=== PATIENT | female | born 1945 | race Caucasian/White ===

== ENCOUNTER 2018-04-27 06:48 | Observation (INO) ==
[~2018-04-27 06:48] MED LIST: DEXAMETHASONE 4 MG/1 ML VIAL IV ONE
[2018-04-27] MEDS ORDERED: LACTATED RINGERS 1,000 ML IV SCH ×2 (10:00→23:45)
[2018-04-27] MEDS ORDERED: MUPIROCIN 2% OINT 22 GM TUBE TOP ONE (13:05)
[2018-04-27] MEDS ORDERED: LIDOCAINE 1%/EPI INJ 20 ML VIAL ONE (13:05)
[2018-04-27] MEDS ORDERED: BACITRACIN 50,000 UNIT VIAL ONE (13:05)
[2018-04-27] MEDS ORDERED: DIAZEPAM 2 MG TABLET PO STA (13:18)
[2018-04-27] MEDS ORDERED: LIDOCAINE 2% TOP JELLY 5 ML TUBE TOP ONE (20:04)
[2018-04-27] MEDS ORDERED: ACETAMINOPHEN 500 MG TABLET PO PRN (23:45)
[2018-04-27] MEDS ORDERED: diphenhydrAMINE 50 MG/1 ML VIAL IV PRN (23:45)
[2018-04-27] MEDS ORDERED: KETOROLAC 30 MG/1 ML VIAL IV PRN (23:45)
[2018-04-27] MEDS ORDERED: MORPHINE 4 MG/1 ML VIAL IV PRN (23:49)
[2018-04-28 00:29] LABS: Apearance,Urine Slightly Hazy (Clear); Bacteria,Urine Occasional /HPF (Few); Bilirubin,Urine Negative (Negative); Blood, Urine Negative (Negative); Glucose,Urine (UA) Negative (Negative); Ketones,Urine Negative (Negative); Nitrite,Urine Positive (Negative); Protein,Urine Negative; RBC,Urine 3 /HPF (0-4); Urine Color Yellow (Yellow); Urine Specific Gravity 1.012 (1.001-1.035); Urine Urobilinogen < 2.0 EU/DL (0.2-1.0); WBC,Urine 81 /HPF (0-6)
[2018-04-28] MEDS ORDERED: LIDOCAINE 1% 5 ML VIAL ONE (00:30)
[2018-04-28] MEDS ORDERED: fentaNYL 100 MCG/2 ML VIAL ONE (00:31)
[2018-04-28] MEDS ORDERED: DEXAMETHASONE 10 MG/1 ML VIAL ONE (00:31)
[2018-04-28] MEDS ORDERED: MIDAZOLAM 2 MG/2 ML VIAL ONE (00:31)
[2018-04-28] MEDS ORDERED: PHENYLEPHRINE 10 MG/1 ML VIAL IV ONE (00:32)
[2018-04-28] MEDS ORDERED: ACETAMINOPHEN 1,000 MG/100 ML VIAL IV ONE (00:32)
[2018-04-28] MEDS ORDERED: SODIUM CHLORIDE 0.9% 250 ML IV ONE (00:32)
[2018-04-28] MEDS ORDERED: PROPOFOL 200 MG/20 ML VIAL IV ONE (00:33)
[2018-04-28] MEDS ORDERED: SEVOFLURANE 1 UNIT/15 MINUTE INH ONE (00:33)
[2018-04-28] MEDS ORDERED: SUCCINYLCHOLINE 200 MG/10 ML VIAL ONE (00:40)
[2018-04-28] MEDS ORDERED: ROCURONIUM 100 MG/10 ML VIAL IV ONE (00:41)
[2018-04-28] MEDS ORDERED: ePHEDrine 50 MG/ML AMP ONE (01:05)
[2018-04-28] MEDS: DEXAMETHASONE 4 MG/1 ML VIAL IV SCH ×2 (04:34→13:14)
[2018-04-28] MEDS ORDERED: ONDANSETRON 4 MG/2 ML VIAL IV SCH (06:00)
[2018-04-28] MEDS ORDERED: LEVOTHYROXINE 25 MCG TABLET PO SCH (06:00)
[2018-04-28] MEDS ORDERED: hydroCHLOROthiazide 25 MG TABLET PO SCH (09:00)
[2018-04-28] MEDS ORDERED: FOLIC ACID 1 MG TABLET PO SCH (09:00)
[2018-04-28] MEDS ORDERED: amLODIPine 5 MG TABLET PO SCH (09:00)
[2018-04-28] MEDS ORDERED: FLUoxetine 20 MG CAPSULE PO SCH (09:00)
[2018-04-28] MEDS ORDERED: PANTOPRAZOLE 40 MG TABLET PO SCH (09:00)
[2018-04-28] MEDS ORDERED: NEBIVOLOL 5 MG TABLET PO SCH (09:00)
[2018-04-28 14:03] VITALS: BP 158/74
[2018-04-28] MEDS ORDERED: tiZANidine 4 MG TABLET PO SCH (21:00)
[2018-04-28] MEDS ORDERED: OXYBUTYNIN XL 10 MG TABLET PO SCH (21:00)
[2018-04-28] MEDS ORDERED: CARBIDOPA/LEVODOPA 25-100 MG TABLET PO SCH (21:00)
[2018-04-28] MEDS ORDERED: ATORVASTATIN 10 MG TABLET PO SCH (21:00)
[2018-05-04] MEDS ORDERED: NON-FORMULARY MEDICATION (Etanercept [Enbrel] 50 MG) SUBCUT SCH (09:00)
[2018-05-04] MEDS ORDERED: METHOTREXATE 2.5 MG TABLET PO SCH (09:00)
== END 2018-04-28 14:35 | disposition home or self-care (01) ==
LOC: N.OR 06:48 → N.SDSINP 06:50 → N.ICU 23:45 → INTOOBSV 23:45 → N.ICU 04-28 00:19
PROVIDERS: ADMIT Otolaryngology; ATTEND Otolaryngology
PROC: [UNRECOGNIZED PROCEDURE] (2018-04-27 20:15)

== ENCOUNTER 2021-09-03 09:34 | Inpatient (IN) ==
[2021-09-03 10:14] LABS: Basophils # 0.1 10*3/uL (0.0-0.2); Basophils % 0.3 % (0.0-0.8); Eosinophils # 0.1 10*3/uL (0.0-0.87); Eosinophils % 0.4 % (0.00-10.9); Hematocrit 34.5 VOL% (35.7-47.0); Hemoglobin 11.3 GM/DL (12.0-16.0); Immature Granulocytes % 0.5 %; Immature Granulocytes Absolute 0.09 #; Lymphocytes # 0.7 10*3/uL (1.4-4.0); Lymphocytes % 3.9 % (21.3-54.2); Mean Corpuscular HGB Conc 32.8 GM/DL (32-36); Mean Corpuscular Volume 91.5 FL (87-102); Mean Platelet Volume 9.1 FL (9.6-12.0); Monocytes % 3.8 % (1.7-12.7); Neutrophils % 91.1 % (38.7-73.9); Platelet Count 297 T/CUMM (130-400); Red Blood Count 3.77 MC/CUMM (3.8-5.5); Red Cell Distribution Width 13.9 % (9.3-17.3); White Blood Count 17.1 T/CUMM (4-12)
[2021-09-03] MEDS ORDERED: LORazepam 2 MG/1 ML VIAL ONE (10:31)
[2021-09-03 10:38] LABS: Band Neutrophils 1 % (0-10); Eosinophils 1 % (0-10); Hypochromasia Slight; Lymphocytes 4 % (20-55); Microcytosis Slight; Platelet Estimate Adequate; Segmented Neutrophils 90 % (50-85); Total Cells Counted 100
[2021-09-03] MEDS ORDERED: SODIUM CHLORIDE 0.9% 2,150 ML IV ONE (10:40)
[2021-09-03 10:43] LABS: Alanine Aminotransferase 33 U/L (13-56); Albumin 3.2 G/DL (3.4-5.0); Alkaline Phosphatase 119 U/L (45-117); Aspartate Amino Transferase 19 U/L (0-37); Blood Urea Nitrogen 14 MG/DL (7-18); Calcium 8.9 MG/DL (8.5-10.1); Carbon Dioxide 25 MMOL/L (21-32); Estimated Glom Filtration Rate 49 ML/MIN; Glucose 133 MG/DL (74-106); Sodium 136 MMOL/L (136-145); Total Protein 7.4 G/DL (6.4-8.2)
[2021-09-03 10:46] LABS: Bilirubin,Urine Negative (Negative); Blood, Urine Negative (Negative); Glucose,Urine (UA) Negative (Negative); Hyaline Casts,Urine 4 /LPF (0-3); Ketones,Urine Negative (Negative); Mucus,Urine Occasional /LPF (Occasional); Nitrite,Urine Negative (Negative); Protein,Urine Negative; RBC,Urine <1 /HPF (0-4); Squamous Epithelial Cell,Urine Occasional /HPF (0-10); Urine Appearance CLEAR (Clear); Urine Color Yellow (Yellow); Urine Specific Gravity 1.015 (1.001-1.035); Urine Urobilinogen < 2.0 EU/DL (0.2-1.0)
[2021-09-03] MEDS ORDERED: LORazepam 2 MG/1 ML VIAL IV STA (10:48)
[2021-09-03] MEDS ORDERED: PIPERACILLIN/TAZOBACTAM 3,375 MG VIAL IV ONE (10:55)
[2021-09-03] MEDS ORDERED: POTASSIUM CHLORIDE RIDER 10 MEQ/100 ML PREMIX IV ONE (10:57)
[2021-09-03] MEDS ORDERED: MAGNESIUM SULF RIDER 1 GM/100 ML PREMIX IV STA ×3 (10:57→13:15)
[2021-09-03] MEDS ORDERED: PIPERACILLIN/TAZOBACTAM 3,375 MG in SODIUM CHLORIDE 0.9% 100 ML IV SCH ×2 (11:00→12:00)
[2021-09-03] MEDS ORDERED: VANCOMYCIN 1,000 MG VIAL ONE (11:38)
[2021-09-03] MEDS ORDERED: SIMETHICONE CHEW 125 MG TABLET PO PRN (11:41)
[2021-09-03] MEDS ORDERED: ONDANSETRON 4 MG/2 ML VIAL IV PRN (11:41)
[2021-09-03] MEDS ORDERED: DOCUSATE SODIUM 100 MG CAPSULE PO PRN (11:41)
[2021-09-03] MEDS ORDERED: hydrALAZINE 20 MG/1 ML VIAL IV PRN (11:41)
[2021-09-03] MEDS ORDERED: GLUCAGON 1 MG VIAL IM PRN (11:41)
[2021-09-03] MEDS ORDERED: DEXTROSE 50% 25 GM/50 ML VIAL IV PRN (11:41)
[2021-09-03] MEDS ORDERED: CALCIUM CARBONATE CHEW 500 MG TABLET PO PRN (11:41)
[2021-09-03] MEDS ORDERED: LORazepam 2 MG/1 ML VIAL IV PRN (11:46)
[2021-09-03] MEDS ORDERED: MAGNESIUM SULF RIDER 2 GM/50 ML PREMIX IV PRN (11:49)
[2021-09-03] MEDS ORDERED: MAGNESIUM SULF RIDER 4 GM/100 ML PREMIX IV PRN (11:49)
[2021-09-03] MEDS: VANCOMYCIN INJ 1,000 MG in SODIUM CHLORIDE 0.9% 250 ML IV SCH (11:50)
[2021-09-03] MEDS: ALBUTEROL/IPRATROPIUM 3 ML NEB RESP TX SCH ×2 (13:00→19:01)
[2021-09-03 13:04] LABS: Calcium 8.1 MG/DL (8.5-10.1); Osmolality,Calculated 275.7 MOS/KG (273-304); Potassium 3.4 MMOL/L (3.5-5.1)
[2021-09-03] MEDS ORDERED: INFLUENZA VIRUS VACCINE 0.5 ML SYRINGE IM ONE (15:32)
[2021-09-03] MEDS: SODIUM CHLORIDE 0.9% 1,000 ML IV SCH (16:51)
[2021-09-03] MEDS: PIPERACILLIN/TAZOBACTAM 3,375 MG in SODIUM CHLORIDE 0.9% 100 ML IV SCH (22:10)
[2021-09-03] MEDS: tiZANidine 4 MG TABLET PO SCH (22:13)
[2021-09-03] MEDS: OXYBUTYNIN XL 10 MG TABLET PO SCH (22:13)
[2021-09-03] MEDS: lamoTRIgine 100 MG TABLET PO SCH (22:14)
[2021-09-03] MEDS: ATORVASTATIN 10 MG TABLET PO SCH (22:16)
[2021-09-04] MEDS: ALBUTEROL/IPRATROPIUM 3 ML NEB RESP TX SCH ×4 (00:38→20:00)
[2021-09-04] MEDS: VANCOMYCIN INJ 1,000 MG in SODIUM CHLORIDE 0.9% 250 ML IV SCH ×2 (04:52→15:10)
[2021-09-04 05:16] LABS: Basophils % 0.3 % (0.0-0.8); Eosinophils # 0.1 10*3/uL (0.0-0.87); Eosinophils % 0.8 % (0.00-10.9); Hematocrit 30.2 VOL% (35.7-47.0); Immature Granulocytes % 0.4 %; Immature Granulocytes Absolute 0.04 #; Lymphocytes # 1.2 10*3/uL (1.4-4.0); Lymphocytes % 12.3 % (21.3-54.2); Mean Corpuscular HGB Conc 33.1 GM/DL (32-36); Mean Corpuscular Volume 91.8 FL (87-102); Mean Platelet Volume 9.4 FL (9.6-12.0); Monocytes % 6.7 % (1.7-12.7); Neutrophils % 79.5 % (38.7-73.9); Platelet Count 266 T/CUMM (130-400); Red Blood Count 3.29 MC/CUMM (3.8-5.5); Red Cell Distribution Width 14.2 % (9.3-17.3)
[2021-09-04 05:46] LABS: Albumin 2.8 G/DL (3.4-5.0); Bilirubin,Total 1.6 MG/DL (0.20-1.00); Calcium 8.5 MG/DL (8.5-10.1); Osmolality,Calculated 278.3 MOS/KG (273-304); Risk Ratio 2.75; Thyroid Stimulating Hormone 0.827 uIU/ml (0.358-3.74); Total Protein 6.2 G/DL (6.4-8.2); VLDL Cholesterol 13.4 MG/DL
[2021-09-04] MEDS: ACETAMINOPHEN 325 MG TABLET PO PRN (05:47)
[2021-09-04] MEDS: LEVOTHYROXINE 75 MCG TABLET PO SCH (05:47)
[2021-09-04 05:57] LABS: Potassium 2.5 MMOL/L (3.5-5.1)
[2021-09-04] MEDS: POTASSIUM CHLORIDE 20 MEQ TABLET PO PRN ×3 (06:08→11:28)
[2021-09-04] MEDS ORDERED: POTASSIUM CHLORIDE INJ 40 MEQ in SODIUM CHLORIDE 0.9% 1,000 ML IV SCH (07:35)
[2021-09-04] MEDS: GABAPENTIN 300 MG CAPSULE PO SCH (08:32)
[2021-09-04] MEDS: lamoTRIgine 100 MG TABLET PO SCH ×2 (08:33→20:31)
[2021-09-04] MEDS: PANTOPRAZOLE 40 MG TABLET PO SCH (08:33)
[2021-09-04] MEDS: ASPIRIN EC 81 MG TABLET PO SCH (08:33)
[2021-09-04] MEDS: amLODIPine 2.5 MG TABLET PO SCH (08:33)
[2021-09-04] MEDS: FLUoxetine 20 MG CAPSULE PO SCH (08:33)
[2021-09-04] MEDS ORDERED: lamoTRIgine 100 MG TABLET PO SCH (09:00)
[2021-09-04] MEDS: SODIUM CHLORIDE 0.9% 1,000 ML IV SCH (10:36)
[2021-09-04] MEDS: PIPERACILLIN/TAZOBACTAM 3,375 MG in SODIUM CHLORIDE 0.9% 100 ML IV SCH ×2 (11:29→15:09)
[2021-09-04] MEDS ORDERED: BENZOCAINE/MENTHOL LOZENGE 18/BOX PO PRN (15:57)
[2021-09-04] MEDS: cefTRIAXone 1,000 MG in SODIUM CHLORIDE 0.9% 100 ML IV SCH (16:37)
[2021-09-04] MEDS: ATORVASTATIN 10 MG TABLET PO SCH (20:31)
[2021-09-04] MEDS: tiZANidine 4 MG TABLET PO SCH (20:31)
[2021-09-04] MEDS: OXYBUTYNIN XL 10 MG TABLET PO SCH (20:31)
[2021-09-05] MEDS: ALBUTEROL/IPRATROPIUM 3 ML NEB RESP TX SCH ×2 (01:10→06:53)
[2021-09-05] MEDS: LEVOTHYROXINE 75 MCG TABLET PO SCH (05:36)
[2021-09-05 07:57] LABS: Basophils % 0.7 % (0.0-0.8); Eosinophils # 0.2 10*3/uL (0.0-0.87); Eosinophils % 3.8 % (0.00-10.9); Immature Granulocytes % 0.7 %; Immature Granulocytes Absolute 0.04 #; Lymphocytes # 1.5 10*3/uL (1.4-4.0); Lymphocytes % 24.8 % (21.3-54.2); Mean Corpuscular HGB Conc 32.3 GM/DL (32-36); Mean Corpuscular Volume 93.7 FL (87-102); Mean Platelet Volume 8.9 FL (9.6-12.0); Monocytes % 10.3 % (1.7-12.7); Neutrophils % 59.7 % (38.7-73.9); Platelet Count 269 T/CUMM (130-400); Red Blood Count 3.31 MC/CUMM (3.8-5.5); Red Cell Distribution Width 14.4 % (9.3-17.3); White Blood Count 6.1 T/CUMM (4-12)
[2021-09-05 08:16] LABS: Calcium 8.8 MG/DL (8.5-10.1); Osmolality,Calculated 276.4 MOS/KG (273-304); Potassium 3.4 MMOL/L (3.5-5.1)
[2021-09-05] MEDS ORDERED: AZITHROMYCIN 250 MG TABLET PO SCH (09:00)
[2021-09-05] MEDS: ASPIRIN EC 81 MG TABLET PO SCH (09:58)
[2021-09-05] MEDS: lamoTRIgine 100 MG TABLET PO SCH (09:58)
[2021-09-05] MEDS: FLUoxetine 20 MG CAPSULE PO SCH (09:58)
[2021-09-05] MEDS: GABAPENTIN 300 MG CAPSULE PO SCH (09:58)
[2021-09-05] MEDS: amLODIPine 2.5 MG TABLET PO SCH (09:58)
[2021-09-05] MEDS: PANTOPRAZOLE 40 MG TABLET PO SCH (09:59)
[2021-09-05] MEDS: POTASSIUM CHLORIDE 20 MEQ TABLET PO PRN (09:59)
[2021-09-05] MEDS: ACETAMINOPHEN 325 MG TABLET PO PRN (10:04)
[2021-09-05] MEDS: cefTRIAXone 1,000 MG in SODIUM CHLORIDE 0.9% 100 ML IV SCH (10:50)
[2021-09-05] MEDS ORDERED: ONDANSETRON 4 MG TABLET PO PRN (11:35)
[2021-09-05 11:59] VITALS: BP 147/72
[2021-09-05] MEDS ORDERED: POTASSIUM CHLORIDE 20 MEQ TABLET PO ONE (14:00)
[2021-09-05] MEDS ORDERED: hydroCHLOROthiazide 25 MG TABLET PO SCH (15:00)
== END 2021-09-05 14:22 | disposition home or self-care (01) | DRG 871 ==
LOC: EDBD → N.ED 09:34 → N.EDINP 11:41 → SUATTDRO 11:41 → N.5E 14:45
PROVIDERS: ADMIT Internal Medicine; ATTEND Internal Medicine

== ENCOUNTER 2022-08-31 22:04 | Inpatient (IN) ==
[2022-08-31] MEDS ORDERED: ONDANSETRON 4 MG/2 ML VIAL IV STA (22:30)
[2022-08-31] MEDS ORDERED: ONDANSETRON 4 MG/2 ML VIAL ONE (22:32)
[2022-08-31] MEDS ORDERED: SODIUM CHLORIDE 0.9% 1,000 ML IV STA (22:38)
[2022-08-31 23:01] LABS: Basophils % 0.4 % (0.0-0.8); Immature Granulocytes % 0.7 %; Immature Granulocytes Absolute 0.07 #; Lymphocytes # 0.6 10*3/uL (1.4-4.0); Lymphocytes % 5.7 % (21.3-54.2); Mean Corpuscular HGB Conc 34.2 GM/DL (32-36); Mean Corpuscular Volume 90.5 FL (87-102); Monocytes # 0.4 10*3/uL (0.11-0.8); Monocytes % 3.9 % (1.7-12.7); Neutrophils % 89.3 % (38.7-73.9); Platelet Count 283 T/CUMM (130-400); Red Cell Distribution Width 14.9 % (9.3-17.3); White Blood Count 10.5 T/CUMM (4-12)
[2022-08-31] MEDS ORDERED: LORazepam 2 MG/1 ML VIAL ONE (23:21)
[2022-08-31 23:22] LABS: Albumin 4.2 G/DL (3.4-5.0); Bilirubin,Total 0.4 MG/DL (0.20-1.00); Calcium 9.8 MG/DL (8.5-10.1); Osmolality,Calculated 279.7 MOS/KG (273-304); Potassium 2.6 MMOL/L (3.5-5.1); Total Protein 8.5 G/DL (6.4-8.2)
[2022-08-31 23:50] LABS: Bilirubin,Urine Negative (Negative); Blood, Urine Negative (Negative); Glucose,Urine (UA) Negative (Negative); Ketones,Urine 5 mg/dL (Negative); Mucus,Urine Occasional /LPF (Occasional); Nitrite,Urine Negative (Negative); Protein,Urine Negative (Negative); Urine Appearance CLEAR (Clear); Urine Color Straw (Yellow); Urine Specific Gravity 1.011 (1.001-1.035); Urine Urobilinogen < 2.0 eU/dL (<2.0)
[2022-09-01 00:07] LABS: Barbiturates Screen,Urine Negative (Negative); Benzodiazepines Screen,Urine Negative (Negative); Cannabinoid Screen,Urine Negative (Negative); Opiate Screen,Urine Positive (Negative); Phencyclidine Screen,Urine Negative (Negative)
[2022-09-01] MEDS ORDERED: ONDANSETRON 4 MG/2 ML VIAL IV PRN (01:29)
[2022-09-01] MEDS ORDERED: ALUMINUM/MAGNES/SIMETH MAX STR 30 ML UDCUP PO PRN (01:29)
[2022-09-01] MEDS ORDERED: hydrALAZINE 20 MG/1 ML VIAL IV PRN (01:29)
[2022-09-01] MEDS ORDERED: LORazepam 2 MG/1 ML VIAL IV PRN (01:34)
[2022-09-01] MEDS ORDERED: GLUCAGON 1 MG VIAL IM PRN (01:35)
[2022-09-01] MEDS ORDERED: DEXTROSE 10% 250 ML BAG IV PRN (01:41)
[2022-09-01] MEDS ORDERED: SODIUM CHLOR 0.9% KCL 20 MEQ 20 MEQ/1,000 ML BAG IV SCH (02:00)
[2022-09-01 07:54] LABS: Basophils % 0.2 % (0.0-0.8); Hematocrit 35.8 VOL% (35.7-47.0); Immature Granulocytes % 0.7 %; Immature Granulocytes Absolute 0.09 #; Lymphocytes # 0.8 10*3/uL (1.4-4.0); Lymphocytes % 6.2 % (21.3-54.2); Mean Corpuscular HGB Conc 33.5 GM/DL (32-36); Mean Corpuscular Volume 90.4 FL (87-102); Mean Platelet Volume 9.6 FL (9.6-12.0); Monocytes # 0.8 10*3/uL (0.11-0.8); Monocytes % 6.3 % (1.7-12.7); Neutrophils % 86.6 % (38.7-73.9); Platelet Count 270 T/CUMM (130-400); Red Blood Count 3.96 MC/CUMM (3.8-5.5); Red Cell Distribution Width 14.9 % (9.3-17.3); White Blood Count 12.7 T/CUMM (4-12)
[2022-09-01 08:26] LABS: Calcium 8.7 MG/DL (8.5-10.1); Osmolality,Calculated 280.3 MOS/KG (273-304); Potassium 2.7 MMOL/L (3.5-5.1)
[2022-09-01] MEDS: INSULIN REGULAR 100 UNIT/ML SUBCUT SCH ×4 (08:54→20:23)
[2022-09-01] MEDS: DOCUSATE SODIUM 100 MG CAPSULE PO SCH ×2 (08:58→20:22)
[2022-09-01] MEDS ORDERED: PANTOPRAZOLE 40 MG TABLET PO SCH (09:00)
[2022-09-01] MEDS: ENOXAPARIN 40 MG/0.4 ML SYRINGE SUBCUT SCH (09:26)
[2022-09-01] MEDS: lamoTRIgine 100 MG TABLET PO SCH (10:58)
[2022-09-01] MEDS: amLODIPine 5 MG TABLET PO SCH (10:59)
[2022-09-01] MEDS: FLUoxetine 20 MG CAPSULE PO SCH (10:59)
[2022-09-01] MEDS: GABAPENTIN 300 MG CAPSULE PO SCH ×2 (10:59→20:22)
[2022-09-01] MEDS ORDERED: POTASSIUM CHLORIDE 20 MEQ TABLET PO ONE ×2 (11:00→14:00)
[2022-09-01] MEDS: FOLIC ACID 1 MG TABLET PO SCH (11:03)
[2022-09-01] MEDS: ACETAMINOPHEN 325 MG TABLET PO PRN (20:23)
[2022-09-01] MEDS ORDERED: ATORVASTATIN 10 MG TABLET PO SCH (21:00)
[2022-09-01] MEDS ORDERED: OXYBUTYNIN XL 10 MG TABLET PO SCH (21:00)
[2022-09-02 05:05] LABS: Basophils # 0.1 10*3/uL (0.0-0.2); Basophils % 0.9 % (0.0-0.8); Eosinophils % 0.6 % (0.00-10.9); Hematocrit 34.1 VOL% (35.7-47.0); Hemoglobin 10.9 GM/DL (12.0-16.0); Immature Granulocytes % 0.3 %; Immature Granulocytes Absolute 0.02 #; Lymphocytes % 31.8 % (21.3-54.2); Mean Corpuscular Volume 94.5 FL (87-102); Mean Platelet Volume 10.2 FL (9.6-12.0); Monocytes # 0.8 10*3/uL (0.11-0.8); Monocytes % 12.9 % (1.7-12.7); Neutrophils % 53.5 % (38.7-73.9); Platelet Count 197 T/CUMM (130-400); Red Blood Count 3.61 MC/CUMM (3.8-5.5); Red Cell Distribution Width 15.3 % (9.3-17.3); White Blood Count 6.4 T/CUMM (4-12)
[2022-09-02 05:27] LABS: Calcium 8.8 MG/DL (8.5-10.1); Osmolality,Calculated 280.1 MOS/KG (273-304); Potassium 3.9 MMOL/L (3.5-5.1)
[2022-09-02] MEDS ORDERED: LEVOTHYROXINE 25 MCG TABLET PO SCH (06:30)
[2022-09-02] MEDS: INSULIN REGULAR 100 UNIT/ML SUBCUT SCH ×2 (08:02→12:39)
[2022-09-02] MEDS: ENOXAPARIN 40 MG/0.4 ML SYRINGE SUBCUT SCH (08:06)
[2022-09-02] MEDS ORDERED: ASPIRIN EC 81 MG TABLET PO SCH (09:00)
[2022-09-02] MEDS: ACETAMINOPHEN 325 MG TABLET PO PRN (09:33)
[2022-09-02] MEDS: FLUoxetine 20 MG CAPSULE PO SCH (09:34)
[2022-09-02] MEDS: GABAPENTIN 300 MG CAPSULE PO SCH (09:34)
[2022-09-02] MEDS: DOCUSATE SODIUM 100 MG CAPSULE PO SCH (09:34)
[2022-09-02] MEDS: FOLIC ACID 1 MG TABLET PO SCH (09:35)
[2022-09-02] MEDS: amLODIPine 5 MG TABLET PO SCH (09:35)
[2022-09-02] MEDS: lamoTRIgine 100 MG TABLET PO SCH (09:35)
[2022-09-02] MEDS ORDERED: BENZOCAINE/MENTHOL LOZENGE 18/BOX PO PRN (11:00)
[2022-09-02 13:08] VITALS: BP 133/79
[2022-09-02] MEDS ORDERED: lamoTRIgine 100 MG TABLET PO SCH (21:00)
== END 2022-09-02 14:54 | disposition home or self-care (01) | DRG 101 ==
LOC: EDBD → EDUNIT# → N.EDINP 22:04 → N.ED 22:04 → N.5E 09-01 04:10 → SUATTDRO 09-01 09:31
PROVIDERS: ADMIT Internal Medicine; ATTEND Internal Medicine